=== PATIENT | female | born 1985 | race Caucasian/White ===

== ENCOUNTER → 2024-10-29 | Outpatient (CLI) | payer BC, SELFPAY ==
--- NOTE | 2024-10-29 09:30 | XR_ITS ---
Examination: CT abdomen and pelvis without contrast. Coronal 3-D reconstructions. Sagittal 2-D reconstructions. Date and time of exam:October 29, 2024 1003 hours INDICATIONS: Right flank pain beginning 2 weeks ago CTDI: vol (mGy): 19.1 DLP: (mGycm): 1085 Technique: Axial images of the abdomen have been obtained, 3 mm slice thickness Intravenous contrast material has not been administered. Low dose protocols were performed. One or more of the following dose reduction techniques were used; automated exposure control, adjustment of the mA and/or KV according to patient size, use of iterative reconstruction technique. Findings: No focal liver or splenic lesions No gallstones No pancreatic or adrenal mass 2 mm lower pole nonobstructing left renal calculus Suspicious for distal right 6 mm ureterovesical junction calculus although no hydronephrosis Normal appendix Colonic diverticulosis, no diverticulitis Anteverted uterus Hypodense right adnexal mass 4.1 cm No bladder mass or bladder calculi IMPRESSION: Suspicious for 6 mm distal right ureterovesical junction calculus, although no hydronephrosis
[2024-10-29 09:59] LABS: HCG Qualitative,Urine Negative
== END | disposition home or self-care (01) ==
LOC: CCTX 09:06
PROVIDERS: PCP Family Medicine; Referring Provider Internal Medicine; Visit Provider Internal Medicine
DX: N13.30 Unspecified hydronephrosis (principal); Z32.00 Encounter for pregnancy test, result unknown
CPT/HCPCS: 74176; 81025